=== PATIENT | female | born 1940 | race African-American/Black ===

== ENCOUNTER → 2020-04-30 | Outpatient (CLI) | payer MEDICARE, BC ==
--- NOTE | 2020-05-01 17:22 | RAD ---
BILATERAL SCREENING MAMMOGRAM History: Routine screening. Comparison: 12/02/2018 and 11/06/2017. Technique: Routine bilateral digital mammogram views were obtained. Findings: Breast Tissue Density C : The breasts are heterogeneously dense, which may obscure small masses. There are no dominant masses, suspicious microcalcifications, or architectural distortion. IMPRESSION: No mammographic evidence of malignancy. Recommend routine screening. BI-RADS category 1: Negative. The images were reviewed with computer aided detection. Patient information is entered into the reminder system with a target due date for the next screening mammogram. Mammography is the most sensitive method for finding small breast cancers, but it does not detect them all and is not a substitute for careful clinical examination. A negative mammogram does not negate a clinically suspicious finding and should not result in delay in biopsying a clinically suspicious abnormality. "Our facility is accredited by the [employer] Mammography [employer]." Electronically signed by: Delmar Moreno MD (05/01/2020 5:19 PM) [id number]
== END ==
LOC: MAMMO 10:41
PROVIDERS: ATTEND Obstetrics & Gynecology
DX: Z12.31 Encounter for screening mammogram for malignant neoplasm of breast (principal)
CPT/HCPCS: 77067

== ENCOUNTER → 2021-01-16 | Outpatient (CLI) | payer MEDICARE, BC ==
--- NOTE | 2021-01-16 17:36 | RAD ---
EXAM: Right lower extremity arterial Doppler sonogram. HISTORY: Pain. Peripheral vascular disease. TECHNIQUE: Mcintosh scale and color Doppler sonographic imaging of the lower extremity arteries with spec tral waveform analysis was performed. COMPARISON: None. FINDINGS: There is calcified atherosclerotic plaque throughout the superficial femoral artery and pro ximal calf arteries. There are not elevated peak systolic velocities within the common femoral and pr oximal superficial femoral arteries, measuring 136 cm/s and 110 71 cm/s. There is an abnormal monopha sic waveforms and decreased peak systolic velocity of 18 cm/s within the dorsalis pedis artery. The r emainder of the arteries demonstrate triphasic and biphasic waveforms. IMPRESSION: 1. Abnormal monophasic waveforms and decreased peak systolic velocity within the dorsalis pedis arter y, suggesting hemodynamically significant proximal stenosis. 2. Elevated peak systolic velocities within the common femoral and proximal superficial femoral arter ies, suggesting hemodynamically significant stenosis. 3. Calcified atherosclerotic plaque throughout the superficial femoral artery and proximal calf arter ies. No arterial occlusion is seen. Electronically signed by: Ines Guillen MD (01/16/2021 5:34 PM) [email or web address]
== END ==
LOC: US 11:21
PROVIDERS: ATTEND Podiatrist
DX: I70.201 Unspecified atherosclerosis of native arteries of extremities, right leg (principal)
CPT/HCPCS: 93926

== ENCOUNTER → 2021-05-10 | Outpatient (CLI) | payer MEDICARE, BC ==
--- NOTE | 2021-05-10 18:40 | RAD ---
DATE: 05/10/2021 EXAM: DIGITAL SCREEN BILAT W/CAD HISTORY: Screening COMPARISON: Multiple prior exams dating back to 07/01/2013 This study was interpreted with the benefit of Computerized Aided Detection (CAD). Breast Density: HETERO The breast parenchyma is heterogenously dense, which could reduce sensitivity of mammography. Breast parenchyma level C. FINDINGS: No mass, suspicious calcification, or architectural distortion in either breast. IMPRESSION: No evidence of malignancy. BI-RADS CATEGORY: 1 NEGATIVE RECOMMENDED FOLLOW-UP: 12M 12 MONTH FOLLOW-UP PQRS compliance statement: Patient information was entered into a reminder system with a target due date for the next mammogram. Mammography is a sensitive method for finding small breast cancers, but it does not detect them all and is not a substitute for careful clinical examination. A negative mammogram does not negate a clinically suspicious finding and should not result in delay in biopsying a clinically suspicious abnormality. "Our facility is accredited by the [employer] Mammography [employer]."
== END ==
LOC: MAMMO 11:05
PROVIDERS: ATTEND Family Medicine
DX: Z12.31 Encounter for screening mammogram for malignant neoplasm of breast (principal)
CPT/HCPCS: 77067

== ENCOUNTER → 2021-05-27 | Outpatient (CLI) | payer MEDICARE, BC ==
[2021-05-27 11:59] LABS: BASO # 0.1 x10^3/uL (0.0-0.2); BASO % 1 % (0-3); EOS # 0.2 x10^3/uL (0.0-0.7); EOS % 5 % (0-3); HEMATOCRIT 36.8 % (36.0-47.0); HEMOGLOBIN 11.9 g/dL (12.0-15.5); LYMPH # 1.6 x10^3/uL (1.0-4.8); LYMPH % 38 % (24-48); MEAN CORPUSCULAR HEMOGLOBIN 29 pg (25-35); MEAN CORPUSCULAR HGB CONC 32 g/dL (31-37); MEAN CORPUSCULAR VOLUME 90 fL (79-100); MONO # 0.5 x10^3/uL (0.0-1.1); MONO % 11 % (0-9); NEUT # 1.8 x10^3uL (1.8-7.7); NEUT % 44 % (31-73); PLATELET COUNT 198 x10^3/uL (140-400); RED BLOOD COUNT 4.09 x10^6/uL (3.50-5.40); RED CELL DISTRIBUTION WIDTH 14.4 % (11.5-14.5); WHITE BLOOD COUNT 4.1 x10^3/uL (4.0-11.0)
[2021-05-27 12:31] LABS: ALBUMIN 3.7 g/dL (3.4-5.0); ALBUMIN/GLOBULIN RATIO 1.1 (1.0-1.7); CALCIUM 8.6 mg/dL (8.5-10.1); CREATININE 1.2 mg/dL (0.6-1.0); POTASSIUM 4.5 mmol/L (3.5-5.1); TOTAL BILIRUBIN 0.4 mg/dL (0.2-1.0)
== END ==
LOC: LAB 10:39
PROVIDERS: ATTEND Family Medicine
DX: E78.01 Familial hypercholesterolemia (principal)
CPT/HCPCS: 36415; 80053; 80061; 85025

== ENCOUNTER → 2021-06-22 | Outpatient (CLI) | payer MEDICARE, BC ==
--- NOTE | 2021-06-22 17:34 | RAD ---
Exam: Right foot 3 views INDICATION: Right foot pain TECHNIQUE: Frontal, lateral and oblique views the right foot Comparisons: None FINDINGS: Pelvis valgus deformity at the first MTP joint. There is mild degenerative change also at the first M TP joint as well as scattered throughout the midfoot. There is soft tissue swelling overlying the for efoot. Bone mineralization is normal. No acute fracture is seen. IMPRESSION: Soft tissue swelling at the forefoot without underlying acute osseous abnormality identified Electronically signed by: Darshan Chapman MD (06/22/2021 5:32 PM) PRECIOUS
== END ==
LOC: DXRAD 16:10
PROVIDERS: ATTEND Podiatrist Foot & Ankle Surgery
DX: M19.071 Primary osteoarthritis, right ankle and foot (principal); M21.071 Valgus deformity, not elsewhere classified, right ankle; M79.89 Other specified soft tissue disorders
CPT/HCPCS: 73630

== ENCOUNTER 2021-07-26 15:10 | Emergency (ER) | payer MEDICARE, BC ==
[~2021-07-26] VITALS: Ht 160 cm; Wt 77.0 kg
[2021-07-26 15:27] VITALS: BP 161/72
--- NOTE | 2021-07-26 15:55 | RAD ---
Left lower extremity venous real time grayscale, color and spectral duplex ultrasound was performed. History: Reason: left leg swelling / Spl. Instructions: / History: Comparison: None The left common femoral, femoral, and popliteal veins demonstrate anechoic lumina, full compressibi lity, augmentable waveforms, and cephalad color Doppler flow. The posterior tibial are also patent. Normal flow is also seen in the cephalad portion of the saphenous vein. Impression: No evidence of DVT in the left lower extremity. Electronically signed by: Michele Winkler MD (07/26/2021 3:53 PM) [facility]
--- NOTE | 2021-07-26 16:16 | PHYS DOC ---
Past History Past Surgical History: Hip Replacement, Knee Replacement Alcohol Use: None General Adult EDM: Chief Complaint: LOWER EXTREMITY SWELLING HPI: HPI: 81-year-old female past medical history of hypertension and hyperlipidemia, presents the ED sent in by Dr. Javier with concern for left lower extremity swelling. Patient states she is on plavix and aspirin. Initially denies any h/o dvt but when asked why plavix states she may have had a clot in her right leg "it was here, you can look it up." States she is on amlodipine 10 mg. Is not a tobacco smoker. Denies any recent travel, surgeries or prolonged sitting/immobi lization. No history of Covid and has been vaccinated with Moderna. Is not on any hormone replacement. Denies any associated hemoptysis, chest pain, back pain or shortness of breath. Review of Systems: Review of Systems: Constitutional: Denies fever or chills Eyes: Denies change in visual acuity HENT: Denies nasal congestion or sore throat Respiratory: Denies cough or shortness of breath Cardiovascular: Denies chest pain or edema GI: Denies nausea or vomiting : Denies dysuria or vaginal bleeding Musculoskeletal: Denies back pain or joint pain Integument: Denies rash or diaphoresis Neurologic: Denies headache, focal weakness or sensory changes Endocrine: Denies polyuria or polydipsia Lymphatic: Denies swollen glands Psychiatric: Denies depression or anxiety Allergies: Allergies: Allergies Coded Allergies Type Severity Reaction Last Updated Verified No Known Drug Allergies 07/26/21 No Physical Exam: PE: Constitutional: Well developed, well nourished, no acute distress, non-toxic appearance. HENT: Normocephalic, atraumatic, Eyes: EOMI, conjunctiva normal, no discharge. Neck: Normal range of motion, supple, Cardiovascular: S1/2 present, regular rhythm Lungs & Thorax: Speaking in full sentences, bilateral equal chest rise, no tachypnea or increased work of breathing Abdomen: soft, no tenderness, Skin: Warm, dry, no erythema, no rash. [] Extremities: No tenderness, no cyanosis, no pitting edema, cannot appreciate an unequal calve or leg size-they appear equal Neurologic: Alert and oriented X 3, normal motor function, normal sensory function, no focal deficits noted. [] Psychologic: Affect normal, judgement normal, mood normal. [] Current Patient Data: Vital Signs: Vital Signs Date Time Temp Pulse Resp B/P (MAP) Pulse Ox O2 Delivery O2 Flow Rate FiO2 07/26/21 15:27 97.9 75 18 161/72 (101) 98 EKG: EKG: [] Radiology/Procedures: Radiology/Procedures: []IMAGING REPORT Signed PATIENT: RADHA SANTOS I ACCOUNT: [id number] : 1940 LOCATION: ER AGE: 81 SEX: F EXAM STATUS: REG ER ORD. PHYSICIAN: DIXON CARPIO DO REASON: left leg swelling PROCEDURE: VENOUS LOWER EXTREMITY LEFT Left lower extremity venous real time grayscale, color and spectral duplex ultrasound was performed. History: Reason: left leg swelling / Spl. Instructions: / History: Comparison: None The left common femoral, femoral, and popliteal veins demonstrate anechoic lumina, full compressibility, augmentable waveforms, and cephalad color Doppler flow. The posterior tibial are also patent. Normal flow is also seen in the cephalad portion of the saphenous vein. Impression: No evidence of DVT in the left lower extremity. Electronically signed by: Michele Winkler MD (07/26/2021 3:53 PM) [facility] DICTATED AND SIGNED BY: MICHELE WINKLER MD DATE: 07/26/21 1552 CC: ZACARIAS LEDESMA MD; DIXON CARPIO DO ~MTH0 0 Impressions: IF PT HAS A H/O PRIOR PE: -2 points Low risk group for DVT. Unlikely according to [place] DVT studies. IF PT HAS NOT HAD A PE: 0 points Low risk group for DVT. Unlikely according to [place] DVT studies. IF PT HAS A H/O PRIOR PE: 1.5 points Low risk group: 1.3% chance of PE in an ED population. Another study assigned scores ? 4 as PE Unlikely and had a 3% incidence of PE. IF PT HAS NOT HAD A PE: 0.0 points Low risk group: 1.3% chance of PE in an ED population. Another study assigned scores ? 4 as PE Unlikely and had a 3% incidence of PE. Heart Score: C/O Chest Pain: No Risk Factors: Risk Factors: DM, Current or recent (<one month) smoker, HTN, HLP, family history of CAD, obesity. Risk Scores: Score 0 - 3: 2.5% MACE over next 6 weeks - Discharge Home Score 4 - 6: 20.3% MACE over next 6 weeks - Admit for Clinical Observation Score 7 - 10: 72.7% MACE over next 6 weeks - Early Invasive Strategies Course & Med Decision Making: Course & Med Decision Making Pertinent Labs and Imaging studies reviewed. (See chart for details) Concern for left lower extremity swelling. I cannot appreciate any difference in lower extremity sizes. Patient with no pitting edema and is also on Norvasc which could cause lower extremity swelling. Patient well-appearing with no chest pain, dyspnea or hemoptysis. Will discharge home with strict ED return precautions were given for chest pain, shortness of breath, hemoptysis or worsening leg swelling. Encouraged urgent outpatient follow-up with PMD for routine follow-up, may repeat ultrasound in 1 week. Life-threatening processes were considered but are low suspicion at this time, given history, physical exam and ED workup. Pt was educated on all prescription medications and adverse effects. All patient's questions were answered and pt was stable at time of discharge. Life/limb-threatening differential includes but is not limited to, trauma (fracture, dislocation, laceration, compartment syndrome, tendon or ligament injury), neurovascular injury or deficitcva/tia, infection (osteomyelitis, abscess, cellulitis, septic arthritis, necrotizing fasciitis), deep vein thrombosis, renal/cardiac/liver disease, medication adverse effect, lymphedema/anasarca, vascular insufficiency or malignancy, I have spoken with the patient and/or caregivers. I explained the patient's condition, diagnoses and treatment plan based on the information available to me at this time. I have answered the patient and/or caregiver's questions and addressed any concerns. The patient and/or caregivers have a good understanding of patient's diagnosis, condition and treatment plan as can be expected at this point. Vital signs have been stable. Patient's condition is stable and appropriate for discharge from the emergency department. Patient will pursue further outpatient evaluation with primary care physician or other designated or consulting physician as outlined in the discharge instructions. The patient and/or caregivers are agreeable to this plan of care and follow-up instructions have been explained in detail. The patient and/or caregivers have received these instructions in written form and have expressed an understanding of the discharge instructions. The patient and/or caregivers are aware that any significant change of condition or worsening of symptoms should prompt immediate return to this or the closest emergency department or call to [phone] Disclaimer: Alina Disclaimer: This electronic medical record was generated, in whole or in part, using a voice recognition dictation system. Departure Departure: Impression: Primary Impression: Swelling of lower extremity Disposition: HOME / SELF CARE / HOMELESS Condition: STABLE Referrals: ZACARIAS LEDESMA MD (PCP) Follow up with your pcp -may repeat US in 1 week [facility] [phone] OR [facility]-Dr. Ledesma [phone] Patient Instructions: Peripheral Edema Additional Instructions: CONTINUE A LOW SALT DIET AND FOLLOWUP WITH PCP IN THE NEXT WEEK. NO DVT ON US TODAY. RETURN TO ED IF: You develop any sudden onset chest pain or shortness of breath, hemoptysis or worsening leg swelling. EMERGENCY DEPARTMENT GENERAL DISCHARGE INSTRUCTIONS Thank you for coming to [facility] (ED) today and trusting us with you care. We trust that you had a positivie experience in our Emergency Department. If you wish to speak to the department management, you may call the director at [phone]. YOUR FOLLOW UP INSTRUCTIONS ARE FOLLOWS: 1. Do you have a private Doctor? If you do not have a private doctor, please ask for a resource list of physicians or clinics that may be able to assist you with follow up care. 2. The Emergency Physician has interpreted your x-rays. The X-Ray specialist will also review them. If there is a change in the findings, you will be notified in 48 hours when at all possible. 3. A lab test or culture has been done, your results will be reviewed and you will be notified if you need a change in treatment. ADDITIONAL INSTRUCTIONS AND INFORMATION: 1. Your care today has been supervised by a physician who is specially trained in emergency care. Many problems require more than one evaluation for a complete diagnosis and treatment. We recommend that you schedule your follow up appointment as recommended to ensure complete treatment of you illness or injury. If you are unable to obtain follow up care and continue to have a problem, or if your condition worsens, we recommend that you return to the ED. 2. We are not able to safely determine your condition over the phone nor are we able to give sound medical advice over the phone. For these safety reasons, if you call for medical advice we will ask you to come to the ED for further evaluation. 3. If you have any questions regarding these discharge instructions please call the ED at [phone]. SAFETY INFORMATION: In the interest of safety, wellness, and injury prevention; we encourage you to wear your sealbelt, if you smoke; quite smoking, and we encourage family to use a prot ective helmet for bicycling and other sporting events that present an increased risk for head injury. IF YOUR SYMPTOMS WORSEN OR NEW SYMPTOMS DEVELOP, OR YOU HAVE CONCERNS ABOUT YOUR CONDITION; OR IF YOUR CONDITION WORSENS WHILE YOU ARE WAITING FOR YOUR FOLLOW UP APPOINTMENT; EITHER CONTACT YOUR PRIMARY CARE DOCTOR, THE PHYSICIAN WHOSE NAME AND NUMBER YOU WERE GIVEN, OR RETURN TO THE ED IMMEDIATELY. DIXON CARPIO DO Jul 26, 2021 16:16
== END 2021-07-26 16:26 | disposition home or self-care (01) ==
LOC: ER 15:10
DX: R22.42 Localized swelling, mass and lump, left lower limb (principal); I10 Essential (primary) hypertension; E78.5 Hyperlipidemia, unspecified; Z79.02 Long term (current) use of antithrombotics/antiplatelets
CPT/HCPCS: 93971; 99284-25

== ENCOUNTER 2021-12-21 08:56 | Emergency (ER) | payer MEDICARE, BC ==
[~2021-12-21] VITALS: Ht 160 cm; Wt 76.0 kg
[2021-12-21 08:56] VITALS: BP 162/81
[2021-12-21] MEDS ORDERED: DIPHTH,PERTUSS(ACELL),TET TOX 0.5 ML DISP.SYRIN. VAX IM ONE (09:30)
[2021-12-21] MEDS ORDERED: CEPH500T PO (10:29)
--- NOTE | 2021-12-21 10:29 | PHYS DOC ---
Past History Past Surgical History: Appendectomy, Hip Replacement, Knee Replacement, Other Alcohol Use: None General Adult EDM: Chief Complaint: LACERATION/AVULSION HPI: HPI: 81-year-old female presents with left ear laceration. The patient was walking in her bedroom in the dark and the arm while doors were open. She did not see this and the handle caught the left ear. She thought she does had a scratch but then she felt up and noticed she was bleeding. It bled a lot because the patient is on Plavix. She came in the emergency room for suture repair. Bleeding was stopped prior to arrival. Patient's tetanus is not up-to-date. She has no known allergies. She denies any other injuries or complaints at this time. Review of Systems: Review of Systems: Constitutional: Denies fever or chills Eyes: Denies change in visual acuity HENT: Denies nasal congestion or sore throat Respiratory: Denies cough or shortness of breath Cardiovascular: Denies chest pain or edema GI: Denies abdominal pain, nausea, vomiting, bloody stools or diarrhea : Denies dysuria Musculoskeletal: Denies back pain or joint pain Integument: Left ear laceration Neurologic: Denies headache, focal weakness or sensory changes Endocrine: Denies polyuria or polydipsia Lymphatic: Denies swollen glands Psychiatric: Denies depression or anxiety Current Medications: Current Meds: Current Medications Medications (Trade) Dose Ordered Sig/Cristóbal Start Time Stop Time Status Last Admin Dose Admin Diphtheria/ Tetanus/Acell Pertussis (Boostrix) 0.5 ml ONCE ONCE 12/21/21 09:30 12/21/21 09:31 DC Allergies: Allergies: Allergies Coded Allergies Type Severity Reaction Last Updated Verified No Known Drug Allergies 07/26/21 No Physical Exam: PE: Constitutional: Well developed, well nourished, no acute distress, non-toxic appearance. [] HENT: Normocephalic, atraumatic, bilateral external ears normal, oropharynx moist, no oral exudates, nose normal. [] Eyes: PERRLA, EOMI, conjunctiva normal, no discharge. [] Neck: Normal range of motion, no tenderness, supple, no stridor. [] Cardiovascular:Heart rate regular rhythm, no murmur [] Lungs & Thorax: Bilateral breath sounds clear to auscultation [] Abdomen: Bowel sounds normal, soft, no tenderness, no masses, no pulsatile masses. [] Skin: Left ear complex laceration 5 cm total length. [] Back: No tenderness, no CVA tenderness. [] Extremities: No tenderness, no cyanosis, no clubbing, ROM intact, no edema. [] Neurologic: Alert and oriented X 3, normal motor function, normal sensory function, no focal deficits noted. [] Psychologic: Affect normal, judgement normal, mood normal. [] Current Patient Data: Vital Signs: Vital Signs Date Time Temp Pulse Resp B/P (MAP) Pulse Ox O2 Delivery O2 Flow Rate FiO2 12/21/21 08:56 75 162/81 (108) 95 12/21/21 08:56 16 Room Air EKG: EKG: [] Radiology/Procedures: Radiology/Procedures: [] Heart Score: C/O Chest Pain: N/A Risk Factors: Risk Factors: DM, Current or recent (<one month) smoker, HTN, HLP, family history of CAD, obesity. Risk Scores: Score 0 - 3: 2.5% MACE over next 6 weeks - Discharge Home Score 4 - 6: 20.3% MACE over next 6 weeks - Admit for Clinical Observation Score 7 - 10: 72.7% MACE over next 6 weeks - Early Invasive Strategies Course & Med Decision Making: Course & Med Decision Making Pertinent Labs and Imaging studies reviewed. (See chart for details) The patient had a complex multiangle laceration of the left ear. I repaired with sutures. See note below for more details. I will place the patient on prophylactic antibiotics given the openness of the wound. Her tetanus was updated in the emergency room. She is stable for discharge at this time. [] Dragon Disclaimer: Dragon Disclaimer: This electronic medical record was generated, in whole or in part, using a voice recognition dictation system. Laceration Repair Lac Repair Indication: [] 5 cm multiangle laceration of the left ear. Procedure: I obtained verbal consent from the patient for suture repair for left ear laceration. The wound was anesthetized with 2% lidocaine. A total of 2.5 cc was used. After good anesthesia was achieved, I thoroughly irrigated the wo und with normal saline under pressure. There was no foreign bodies found. I repaired the wound with 5-0 Ethilon suture in an interrupted fashion. There were 10 total sutures. There was good skin approximation. Bleeding was controlled. No dressing was applied. Tetanus was updated in the ED. Total repaired wound length: 5 cm Other Items: None The patient tolerated the procedure well Complications: Complex multiangle laceration Departure Departure: Impression: Primary Impression: Laceration of left ear Disposition: HOME / SELF CARE / HOMELESS Condition: IMPROVED Referrals: ZACARIAS LEDESMA MD (PCP) Patient Instructions: Facial Laceration, [id number], Sutured Wound Care, [id number] Additional Instructions: You should have your sutures removed in 5 to 7 days. You can make an appointment with your primary care physician or you can return to the emergency room whichever is more convenient for you. Scripts Cephalexin (CEPHALEXIN) 500 Mg Tablet 1 TAB PO TID for ear laceration for 7 Days, #21 TAB Prov: FELIPE WORTHY DO 12/21/21 FELIPE WORTHY DO Dec 21, 2021 10:29
== END 2021-12-21 10:40 | disposition home or self-care (01) ==
LOC: ER 08:56
DX: S01.312A Laceration without foreign body of left ear, initial encounter (principal); W22.8XXA Striking against or struck by other objects, initial encounter; Y93.01 Activity, walking, marching and hiking; Y92.89 Other specified places as the place of occurrence of the external cause; Y99.8 Other external cause status
CPT/HCPCS: 12013; 90471; 90715; 99283